=== PATIENT | male | born 1995 | race Caucasian/White ===

== ENCOUNTER 2020-02-04 08:28 | Day surgery (SDC) | payer BC ==
[2020-02-04] MEDS ORDERED: Ringers Lactate 1,000 ML IV ONE (08:37)
[2020-02-04] MEDS ORDERED: BUPIVACA 0.5%/EPI 0.0005%/PF 10 ML VIAL ONE (08:55)
[2020-02-04] MEDS ORDERED: dexAMETHasone 10 MG/ML VIAL ONE (08:56)
[2020-02-04] MEDS ORDERED: ROCURONIUM 50 MG/5 ML VIAL IV ONE (08:56)
[2020-02-04] MEDS ORDERED: MIDAZOLAM HCL 2 MG/2 ML INJ ONE (08:56)
[2020-02-04] MEDS ORDERED: FENTANYL CITR 100 MCG/2 ML ONE (08:56)
[2020-02-04] MEDS ORDERED: propofoL 200 MG/20 ML VIAL IV ONE (08:56)
[2020-02-04] MEDS ORDERED: LIDOCAINE 2% MPF 5 ML VIAL ONE (08:56)
[2020-02-04] MEDS ORDERED: OFLOXACIN OPH 0.3%-5 ML BTL ONE (09:18)
[2020-02-04] MEDS ORDERED: MORPHINE 10 MG/ML VIAL ONE (10:04)
[2020-02-04] MEDS ORDERED: EPINEPHRINE/PF 1 MG/ML AMP ONE (10:08)
--- NOTE | 2020-02-04 10:36 | P.BOP ---
Preoperative diagnosis: tonsil hypertrophy, chronic tonsillits, chronic mucoid otitis Postoperative diagnosis: same Primary procedure: tonsillectomy Secondary procedure: tympanostomy tube clinical laboratory technologist: NONE,NONE Estimated blood loss: 10ml Specimen: bilateral tonsils Findings: L mucoid otitis, significant tonsillar hypertrophy Anesthesia: General Complications: None Implants: Mike T tubes Fluids & blood products: crystalloid 650ml Transferred to: Recovery Room Condition: Good
[2020-02-04] MEDS ORDERED: ONDANSETRON 4 MG/2 ML VIAL ONE (11:05)
[2020-02-04] MEDS: HYDROMORPHONE HCL 2 MG/ML inj ONE ×2 (11:09→11:17)
[2020-02-04] MEDS ORDERED: PROMETHAZINE INJ 25 MG/ML AMP ONE (11:39)
[2020-02-04] MEDS ORDERED: HYDROCOD 2.5mg-ACETAMIN 108mg/5mL Soln PO ONE (12:44)
[2020-02-04] MEDS ORDERED: HYDROCOD 2.5mg-ACETAMIN 108mg/5mL Soln ONE (12:44)
[2020-02-04 13:18] VITALS: BP 120/69; TEMP 97; O2SAT 100
--- NOTE | 2020-02-04 18:09 | OP ---
Date of Procedure: 02/04/2020 Surgeon: Tova Cano MD Preoperative Diagnoses: Tonsillar hypertrophy, chronic tonsillitis, chronic mucoid otitis media. Postoperative Diagnoses: Tonsillar hypertrophy, chronic tonsillitis, chronic mucoid otitis media. Procedures: Tonsillectomy and bilateral tympanostomy tube placement. Indication For Procedure: Reji Alexis presented to the ENT clinic with very severe tonsillar hypertrophy, chronic tonsillitis, and hearing loss due to chronic mucoid otitis media. The risks, benefits, and alternatives of the procedure were discussed with the patient, who agreed to proceed. Procedure in Detail: The patient was brought to the operating room. He was placed under general anesthesia via oral endotracheal tube. The left ear was examined under operating microscope with the aid of an ear speculum. There was minimal cerumen, which was removed with the wire curette. An incision was made in anterior-inferior quadrant of the tympanic membrane with the myringotomy knife. Moderate amount of thick mucoid secretions were suctioned from the middle ear using a 5-Czech Lemons. A Franklin T-tube style tympanostomy tube was placed across the incision and positioned. A similar procedure was performed on the right side. There was minimal fluid noted on the right. The ear speculum was then removed and the head of bed was turned 90 degrees in preparation for patient's tonsillectomy. Due to the patient's obesity, no shoulder roll was required. The neck was extended. A head drape was applied and the McIvor mouth gag was used to open the mouth to retract the tongue and provide exposure to the oropharynx. The Jayesh was suspended from the Michelle stand. The oxygen concentration delivered was confirmed to be less than 40%. The patient was noted to have very severe tonsillar hypertrophy. A red rubber catheter was passed through the patient's right naris and the tip withdrawn through the mouth. The red rubber catheter was then clamped to the head drape for suspension of the soft palate. The right tonsil was grasped using a straight Allis clamp and the Bovie electrocautery was used to incise along the anterior pillar. The capsule of the tonsil was identified and carefully dissected from the underlying tissue. There was a small amount of bleeding at the superior aspect, which was controlled with Bovie electrocautery. After removal of the large tonsil, a tonsil ball was placed in the superior pole to aid in control of a small amount of bleeding and attention was turned to the left tonsil, which was removed in a similar fashion. During removal of the left tonsil, there was bleeding from the superior fossa, which was clamped using a tonsil clamp until the remainder of the tonsil could be removed. An 0-vicryl Endoloop was then used to ligate the small vessel. After removal of both tonsils, the oropharynx was thoroughly irrigated with cold saline. The tonsillar fossae were injected with 0.5% Marcaine with epinephrine to aid in postoperative pain control. An orogastric tube was passed for removal of stomach contents. The patient was then returned to care of Anesthesia for awakening and extubation, which proceeded without difficulty. The patient was transferred to the recovery room in stable condition. Disposition: The patient will be discharged home later today and follow up with Dr. Cano's office in approximately 1 month for evaluation of healing. TERELL Voice ID: [id number] Report ID: [id number] CEDRICK
== END 2020-02-04 13:15 | disposition home or self-care (01) ==
LOC: OR 08:28
PROVIDERS: ATTEND Otolaryngology
PROC: 099570Z Drainage of Right Middle Ear with Drainage Device, Via Natural or Artificial Opening (ICD-10-PCS; 2020-02-04)
PROC: 0CTPXZZ Resection of Tonsils, External Approach (ICD-10-PCS; principal; 2020-02-04 09:30)
PROC: 099670Z Drainage of Left Middle Ear with Drainage Device, Via Natural or Artificial Opening (ICD-10-PCS; 2020-02-04 09:30)
DX: H65.33 Chronic mucoid otitis media, bilateral (principal); J35.01 Chronic tonsillitis; J35.1 Hypertrophy of tonsils; G47.33 Obstructive sleep apnea (adult) (pediatric); H90.0 Conductive hearing loss, bilateral; E65 Localized adiposity; E66.01 Morbid (severe) obesity due to excess calories; Z68.42 Body mass index [BMI] 45.0-49.9, adult; Z80.9 Family history of malignant neoplasm, unspecified; Z82.5 Family history of asthma and other chronic lower respiratory diseases; Z82.49 Family history of ischemic heart disease and other diseases of the circulatory system
CPT/HCPCS: 88304; 42826; 69436; J2704; J0171; J2550; J2250; J1170; J3010; J1100; J7120; J2405